=== PATIENT | male | born 1945 | race Hispanic/Latino ===

== ENCOUNTER → 2018-11-01 | Day surgery (SDC) | payer MEDICARE, OTHER ==
[~2018-11-01] MED LIST: AMLODIPINE BESYL5 MG PO; BALANCED SALT SOLN (OPTH) 15 ML BTL IO ONE; FENTANYL CITRATE/PF 100MCG/2 ML INJ ONE; FINASTERIDE5 MG PO; FLOMAX0.4 MG PO; LIDOCAINE 2% /EPINEPHRINE 20 ML SDV INJ ONE; LIDOCAINE HCL 2% LOCAL INJ 5 ML SDV VIAL INJ ONE; LISINOPRIL10 MG PO; NEOMYCIN/POLYMYXIN/DEX (OPTH) 3.5 GM TUBE ONE; POVIDONE IODINE 5% (OPTH) 30 ML BTL ONE; PRAVASTATIN SOD20 MG PO; PROPOFOL IV EMULSION 10 MG/ML 20 ML VIAL ONE
[2018-11-01 15:15] VITALS: BP 142/81
== END | disposition home or self-care (01) ==
LOC: OR 12:18
PROVIDERS: ATTEND Ophthalmology
DX: H02.834 Dermatochalasis of left upper eyelid (principal); H02.831 Dermatochalasis of right upper eyelid; I10 Essential (primary) hypertension; E78.5 Hyperlipidemia, unspecified
CPT/HCPCS: 15823; J2001 ×2; J2704; J3010

== ENCOUNTER → 2022-03-03 | Day surgery (SDC) | payer MEDICARE, OTHER ==
[~2022-03-03] MED LIST changes: -BALANCED SALT SOLN (OPTH) 15 ML BTL IO ONE; -LIDOCAINE 2% /EPINEPHRINE 20 ML SDV INJ ONE; -LIDOCAINE HCL 2% LOCAL INJ 5 ML SDV VIAL INJ ONE; +METFORMIN HCL500 MG PO; +MIDAZOLAM HCL 2 MG/2 ML VIAL ONE; -NEOMYCIN/POLYMYXIN/DEX (OPTH) 3.5 GM TUBE ONE; +OR PHACO EYE KIT ONE; -POVIDONE IODINE 5% (OPTH) 30 ML BTL ONE; +PREOP PHACO EYE KIT ONE; -PROPOFOL IV EMULSION 10 MG/ML 20 ML VIAL ONE; +VITAMIN D
[2022-03-03 09:20] VITALS: BP 109/81
== END | disposition home or self-care (01) ==
LOC: OR 07:13
PROVIDERS: ATTEND Ophthalmology
DX: H25.11 Age-related nuclear cataract, right eye (principal); E11.9 Type 2 diabetes mellitus without complications; I10 Essential (primary) hypertension; E78.00 Pure hypercholesterolemia, unspecified; E78.5 Hyperlipidemia, unspecified; N40.0 Benign prostatic hyperplasia without lower urinary tract symptoms; Z79.84 Long term (current) use of oral hypoglycemic drugs; Z79.899 Other long term (current) drug therapy
CPT/HCPCS: 36415; 66984; 82948; J2250; J3010; V2632

== ENCOUNTER 2024-06-29 19:22 | Inpatient (IN) | payer MEDICARE, OTHER ==
[~2024-06-29] VITALS: Ht 177.8 cm; Wt 97.5 kg
[~2024-06-29 19:22] MED LIST changes: -FENTANYL CITRATE/PF 100MCG/2 ML INJ ONE; -MIDAZOLAM HCL 2 MG/2 ML VIAL ONE; -OR PHACO EYE KIT ONE; -PREOP PHACO EYE KIT ONE
[2024-06-30] MEDS ORDERED: Morphine 4mg INJECTION 4 MG/ML INJ IV PRN
[2024-06-30] MEDS ORDERED: ONDANSETRON HCL INJ 2MG/ML 2ML 2 MG/ML VIAL IV PRN
[2024-06-30 00:10] VITALS: PULSE 89; RESP 16; TEMP 98.8
[2024-06-30] MEDS: ASPIRIN 325 MG TAB PO ONE (00:19)
[2024-06-30] MEDS: CLOPIDOGREL BISULFATE 75 MG TAB PO ONE (00:20)
[2024-06-30 04:10] VITALS: BP 140/98; PULSE 82; RESP 18; TEMP 98.9; O2SAT 100
[2024-06-30 06:09] VITALS: BP 140/98; PULSE 82; RESP 16; TEMP 98.1; O2SAT 100
[2024-06-30] MEDS ORDERED: IOPAMIDOL 370 MG/ML 100 ML INFUS..BTL INJ ONE (06:33)
[2024-06-30 08:00] VITALS: BP 140/77; PULSE 86; RESP 19; TEMP 98.1; O2SAT 100
[2024-06-30] MEDS: FINASTERIDE 5 MG TAB PO SCH (09:34)
[2024-06-30] MEDS: ASPIRIN 81 MG ENTERIC COATED PO SCH (09:35)
[2024-06-30] MEDS: TAMSULOSIN HCL 0.4 MG CAP PO SCH (09:35)
[2024-06-30 09:49] VITALS: BP 140/77; PULSE 86; RESP 19; TEMP 98.1; O2SAT 100
[2024-06-30 10:25] LABS: BASOPHILS % 0.4 % (0.0-1.0); EOSINOPHILS # (AUTO) 0.2 (0.0-0.4); EOSINOPHILS % 2.7 % (0.0-6.0); HEMATOCRIT 38.6 % (38.2-49.6); HEMOGLOBIN 12.9 g/dL (14.0-18.0); LYMPHOCYTES # (AUTO) 1.9 (1.0-3.2); LYMPHOCYTES % 24.1 % (18.0-39.1); MEAN CORPUSCULAR HEMOGLOBIN 29.9 pg (28-32); MEAN CORPUSCULAR HGB CONC 33.4 g/dL (31-35); MEAN CORPUSCULAR VOLUME 89.4 fL (81-99); MONOCYTES % 12.2 % (4.4-11.3); NEUTROPHILS # (AUTO) 4.8 (2.1-6.9); NEUTROPHILS % 59.4 % (38.7-80.0); PLATELET COUNT 172 x10e3/uL (140-360); RED BLOOD COUNT 4.32 x10e6/uL (4.3-5.7); RED CELL DISTRIBUTION WIDTH 13.5 % (11.7-14.4); WHITE BLOOD COUNT 8.01 x10e3/uL (4.8-10.8)
[2024-06-30 11:00] LABS: CHOL/HDL RATIO 2.9 (3.9-4.7); MAGNESIUM 1.7 MG/DL (1.3-2.1)
[2024-06-30 11:02] LABS: ALBUMIN 3.4 g/dL (3.5-5.0); ALBUMIN/GLOBULIN RATIO 1.1 (0.8-2.0); ANION GAP 13.4 mmol/L (8-16); BILIRUBIN,TOTAL 0.3 mg/dL (0.2-1.2); CALCIUM 9.2 mg/dL (8.4-10.2); CREATININE, SERUM 0.85 mg/dL (0.72-1.25); POTASSIUM 4.4 mmol/L (3.5-5.1); TOTAL PROTEIN 6.6 g/dL (6.5-8.1)
[2024-06-30 11:20] LABS: THYROID STIMULATING HORMONE 1.622 uIU/mL (0.350-4.940)
[2024-06-30] MEDS ORDERED: MECLIZINE HCL 12.5 MG TAB PO PRN (12:15)
[2024-06-30 12:41] VITALS: BP 143/76; PULSE 76; RESP 18; TEMP 98.2; O2SAT 99
[2024-06-30] MEDS ORDERED: ASPIRIN EC81 MG PO (15:58)
[2024-06-30] MEDS ORDERED: MECLIZINE HCL12.5 MG PO (15:58)
[2024-06-30] MEDS ORDERED: PRAVASTATIN 20 MG TAB PO SCH (21:00)
[2024-06-30] MEDS ORDERED: ATORVASTATIN 40 MG TAB PO SCH (21:00)
== END 2024-06-30 16:30 | disposition home or self-care (01) | DRG 149 ==
LOC: FSED 19:39 → ERHOLD 23:57 → MED/SURG2 06-30 03:26
PROVIDERS: ADMIT Internal Medicine; ATTEND Internal Medicine
DX: H81.10 Benign paroxysmal vertigo, unspecified ear (principal); G45.9 Transient cerebral ischemic attack, unspecified; R26.81 Unsteadiness on feet; I10 Essential (primary) hypertension; E78.2 Mixed hyperlipidemia; E11.9 Type 2 diabetes mellitus without complications; Z79.84 Long term (current) use of oral hypoglycemic drugs; E66.811 Obesity, class 1; Z68.30 Body mass index [BMI] 30.0-30.9, adult; N40.0 Benign prostatic hyperplasia without lower urinary tract symptoms; W18.2XXA Fall in (into) shower or empty bathtub, initial encounter; Y92.002 Bathroom of unspecified non-institutional (private) residence as the place of occurrence of the external cause; Y93.E1 Activity, personal bathing and showering; Z79.899 Other long term (current) drug therapy
CPT/HCPCS: 36415; 70450; 70496; 70498; 70551; 80048; 80053; 80061; 82948; 83036; 83735; 84443; 85025; 93005; 99252; 99284; Q9967